=== PATIENT | female | born 1955 | race Caucasian/White ===

== ENCOUNTER 2017-08-07 09:02 | Outpatient (CLI) | payer MEDICARE, MEDICAID | END 2017-08-07 09:03 | disposition home or self-care (01) | LOC: BICMAMMO 09:02 | PROVIDERS: ATTEND Internal Medicine | DX: Z12.31 Encounter for screening mammogram for malignant neoplasm of breast (principal); Z78.0 Asymptomatic menopausal state; Z80.3 Family history of malignant neoplasm of breast | CPT/HCPCS: 77063; 77067; 77080 ==

== ENCOUNTER 2017-11-22 15:01 | Outpatient (CLI) | payer MEDICARE, MEDICAID ==
--- NOTE | 2017-11-22 15:48 | RAD ---
LUMBAR SPINE: 11/22/17 Two views. INDICATIONS: Postop followup. COMPARISON: 08/10/17 FINDINGS: Postop changes have occurred since the prior exam. Pedicle screws and rods now transfix L5 and S1. In terbody implant is present. Posterior alignment is preserved. There is mild disc narrowing at the other levels of the lumbar spine and mild degenerative hypertroph ic changes throughout the lumbar spine, unchanged from prior exam. IMPRESSION: Postop and degenerative changes of the lumbar spine noted as described. POS: [facility]
== END 2017-11-22 15:02 | disposition home or self-care (01) ==
LOC: TBSIIMAG 15:01
PROVIDERS: ATTEND Neurological Surgery
DX: M54.5 Low back pain (principal); M47.896 Other spondylosis, lumbar region; Z98.890 Other specified postprocedural states
CPT/HCPCS: 72100

== ENCOUNTER 2019-04-28 14:46 | Outpatient (CLI) | payer MEDICARE, MEDICAID ==
--- NOTE | 2019-04-28 15:33 | RAD ---
LUMBAR SPINE: 04/28/19 Four views. HISTORY: Low back pain. Comparison made to lumbar films of 11/22/17. Pedicle screws and rods transfix L5-S1. There is interbody implant at L5-S1. There is a mild anteroli sthesis at L5-S1. The findings at L5-S1 appears stable from prior exam. There is loss of disc space at the other lumbar levels which appears stable. There is mild degenerati ve hypertrophic changes from the lumbar vertebrae which also appears stable. No significant change in alignment with flexion and extension. IMPRESSION: Postoperative and degenerative changes of the lumbar spine appears stable. POS: [facility]
== END 2019-04-28 14:47 | disposition home or self-care (01) ==
LOC: TBSIIMAG 14:46
PROVIDERS: ATTEND Neurological Surgery
DX: M54.5 Low back pain (principal); M47.816 Spondylosis without myelopathy or radiculopathy, lumbar region; Z98.890 Other specified postprocedural states
CPT/HCPCS: 72110

== ENCOUNTER 2019-06-12 08:55 | Outpatient (CLI) | payer MEDICARE, MEDICAID ==
[2019-06-12] MEDS ORDERED: Magnevist 469MG/ML 20 ML VIAL ONE (10:33)
--- NOTE | 2019-06-12 11:22 | MRI ---
MRI LUMBAR SPINE WITH AND WITHOUT CONTRAST: HISTORY: Low back pain. Previous back surgery, 1-1/2 years ago. COMPARISON: Though the patient states that she had prior MRIs at this facility, there are no prior MRIs on PACS s [facility]. There are only lumbar spine radiographs. FINDINGS: Appropriate T1 marrow signal intensity of the lumbar vertebrae. Lumbar spine vertebral body height is maintained. No fracture. No significant STIR hyperintensity to suggest vertebral body edema or ligamentous injury. Postcontrast images do not demonstrate any abnormal enhancement of the vertebral bodies. No abnormal enhancement of the thecal sac including the cauda equina and medullaris. There are bilateral transpedicular screws at L5 and S1 with associated metallic susceptibly artifact. Appropriate signal intensity visualized paraspinal muscles and solid organs. Conus medullaris terminates at the upper aspect of L1 T12-L1: Adequate disc hydration. No significant central canal stenosis or significant neural foramina l narrowing. L1-L2: Adequate disc hydration. No significant central canal stenosis or significant neural foraminal narrowing. Minimal left and right paracentral disc bulges are noted. L2-L3: Desiccation with mild loss of disc space height. Broad-based disc bulge abuts the thecal sac. Mild ligament flavum thickening and facet hypertrophy are noted. There is no significant central canal stenosis. Disc material does encroach upon the right subarticular zone. There is mass effect wi thout obscuration of the traversing right L3 nerve root. Mild bilateral neural foraminal narrowing. L3-L4: Disc desiccation with mild to moderate loss of disc space height. Left hemilaminotomy defect w ith enhancing scar tissue at the operative site. No significant posterior disc abnormality. No significant central canal stenosis. Mild encroachment upon the right subarticular zone secondary to d isc material and facet hypertrophy. There is partial obscuration if the traversing right L4 nerve root. Moderate to severe right neural foraminal narrowing due to disc material and facet hypertrophy. Mild left neural foraminal narrowing. L4-L5: Disc desiccation with moderate loss of disc space height. Broad-based disc bulge, ligament fla vum thickening and facet hypertrophy result in mild to moderate central canal stenosis. Moderate to severe bilateral neural foraminal narrowing. L5-S1: Posterior laminectomy defect. Disc prosthesis. No significant central canal stenosis or signif icant neural foraminal narrowing. In the posterior midline subcutaneous soft tissues, there is a T2 hyperintense focus with intrinsic T 1 hyperintensity. This lesion does demonstrate peripheral enhancement as well as enhancement of the adjacent paraspinal soft tissues/musculature. Lesion measures 1.3 x 1.2 x 4.5 cm. Postoperative fluid collection is favored. Infected fluid collection cannot be entirely excluded. Lesion is noted from the L3-L5 level. IMPRESSION: 1. Lumbar fusion at L5-S1. 2. Narrowing of the right subarticular zone at L2-L3 and L3-L4. Encroachment upon the traversing righ t L3 and L4 nerve roots. Partial obscuration traversing right L4 nerve root. 3. Enhancing complex fluid collection in the posterior midline subcutaneous fat postoperative. Correl ate clinically. Infected fluid collection cannot be excluded. CODE T Transcribed Date/Time: 06/12/2019 11:36 AM
== END 2019-06-12 08:56 | disposition home or self-care (01) ==
LOC: BICMRI 08:55
PROVIDERS: ATTEND Physical Medicine & Rehabilitation
DX: M54.5 Low back pain (principal); M79.606 Pain in leg, unspecified; M48.061 Spinal stenosis, lumbar region without neurogenic claudication; Z98.890 Other specified postprocedural states; Z98.1 Arthrodesis status
CPT/HCPCS: 72158; 82565; A9579